=== PATIENT | female | born 1985 | race Caucasian/White ===

== ENCOUNTER 2024-03-08 07:51 | Emergency (ER) | payer MEDICAID ==
[~2024-03-08] VITALS: Ht 157.5 cm; Wt 73.0 kg
[2024-03-08 07:53] VITALS: TEMP 98.4; O2SAT 99
[2024-03-08 09:09] LABS: BASOPHILS % 0.4 % (0.0-2.0); CHLORIDE 109 mEq/L (98-107); EOSINOPHILS % 1.3 % (0.0-5.0); HEMATOCRIT. 47.3 % (36.0-48.0); HEMOGLOBIN. 15.7 g/dL (12.0-16.0); LYMPHOCYTES % 21.5 % (20.0-50.0); MEAN CORPUSCULAR HGB CONC 33.3 g/dL (31.0-37.0); MEAN CORPUSCULAR VOLUME 93.1 fL (81.0-99.0); MEAN PLATELET VOLUME 7.3 fl (7.4-10.4); MONOCYTES % 9.2 % (2.0-8.0); NEUTROPHILS % 67.6 % (40.0-76.0); PLATELET 304 x1000/uL (130-400); POTASSIUM 3.9 mEq/L (3.5-5.1); RED BLOOD CELL COUNT 5.08 mill/uL (4.2-5.4); RED CELL DISTRIBUTION WIDTH 14.2 % (11.6-14.6); SODIUM 143 mEq/L (136-145); WHITE BLOOD COUNT 6.2 x1000/uL (4.5-11.0)
[2024-03-08 09:10] LABS: CARBON DIOXIDE 25 mEq/L (21-32); D-DIMER 2.3 mg/L FEU (<0.50); PARTIAL THROMBOPLASTIN TIME 27.3 sec (23.4-31.0); PROTHROMBIN TIME 11.1 sec (9.6-11.0)
[2024-03-08 09:11] LABS: CALCIUM 9.4 mg/dL (8.7-10.4)
[2024-03-08 09:15] LABS: CREATININE 0.8 mg/dL (0.6-1.0); GLUCOSE 91 mg/dL (70-105)
[2024-03-08 09:16] LABS: UREA NITROGEN BLOOD 13 mg/dL (9-23)
[2024-03-08 09:17] LABS: CREATINE KINASE 119 IU/L (34-145); LACTATE DEHYDROGENASE 182 IU/L (120-246)
[2024-03-08 09:18] LABS: PHOSPHORUS 3.2 mg/dL (2.5-4.9)
[2024-03-08 09:58] LABS: ETHANOL BLOOD < 10 mg/dL (<10); TROPONIN I HIGH SENSITIVITY < 4 ng/L (3.0-34)
[2024-03-08 10:32] VITALS: BP 128/86; PULSE 80; RESP 18
[2024-03-08] MEDS: SODIUM CHLORIDE 0.9% 1,000 ML IV SCH (10:32)
[2024-03-08] MEDS: IBUPROFEN 200MG TABLET PO SCH (10:32)
[2024-03-08 11:03] LABS: CLARITY URINE CLEAR (CLEAR); COLOR URINE YELLOW (YELLOW); GLUCOSE URINE NEGATIVE (NEGATIVE); KETONES URINE NEGATIVE (NEGATIVE); LEUKOCYTE ESTERASE URINE TRACE (NEGATIVE); NITRITE URINE NEGATIVE (NEGATIVE); OCCULT BLOOD URINE 2+ (NEGATIVE); PH URINE 5.5 (4.5-8.0); PROTEIN URINE NEGATIVE (NEGATIVE); SPECIFIC GRAVITY URINE 1.009 (1.005-1.030); UROBILINOGEN URINE 0.2 E.U./dL (0.2-1.0)
[2024-03-08 11:16] LABS: BACTERIA URINE FEW; RBC URINE 0-2 /hpf (0-2); SQUAMOUS EPITHELIAL CELL URINE 1+ /lpf (RARE/1+); YEAST URINE NONE SEEN
[2024-03-08 11:19] LABS: *AMPHETAMINES SCREEN URINE NEGATIVE (NEGATIVE)
[2024-03-08 11:20] LABS: *BARBITURATES SCREEN URINE NEGATIVE (NEGATIVE); *BENZODIAZEPINES SCREEN URINE NEGATIVE (NEGATIVE); *COCAINE SCREEN URINE NEGATIVE (NEGATIVE); CANNABINOID URINE SCREEN NEGATIVE (NEGATIVE); ECSTASY MDMA SCREEN URINE NEGATIVE (NEGATIVE); METHADONE URINE SCREEN NEGATIVE (NEGATIVE); OPIATES URINE SCREEN NEGATIVE (NEGATIVE); PHENCYCLIDINE URINE SCREEN NEGATIVE (NEGATIVE)
[2024-03-08] MEDS ORDERED: TOPUD PO (12:22)
[2024-03-08] MEDS ORDERED: IOHEXOL-350 100 ML BOTTLE ONE (14:22)
== END 2024-03-08 15:36 | disposition home or self-care (01) ==
LOC: ER 07:58
DX: R07.89 Other chest pain (principal); S80.211A Abrasion, right knee, initial encounter; W22.09XA Striking against other stationary object, initial encounter; Y93.89 Activity, other specified; Y92.89 Other specified places as the place of occurrence of the external cause; Y99.8 Other external cause status
CPT/HCPCS: 80305; 80048; 81003; 80320; 82550; 83615; 83690; 83735; 84100; 85025; 85379; 85610; 85730; 86850; 86900; 86901; 84484; 36415; 71045; 72170; 71275; 93005; 96360; 99285; Q9967; Z7610; G0480